=== PATIENT | female | born 1990 | race Caucasian/White ===

== ENCOUNTER 2016-11-11 20:34 | Emergency (ER) | payer OTHER ==
[2016-11-11 20:38] VITALS: BP 110/60; PULSE 77; TEMP 98.3; BMI 29.2
[2016-11-11] MEDS ORDERED: METOCLOPRAMIDE HCL 10 MG TABLET (FP) PO ONE ×2 (20:51→20:58)
--- NOTE | 2016-11-11 20:51 | PDOC ---
History of Present Illness - General History Source: Patient Exam Limitations: No Limitations - History of Present Illness Initial Comments: 11/11/16 21:14 The patient is a 22-year-old female who is 6-weeks , , who presents to the ED with abdominal pain accompanied by nausea, vomiting, and spotting. The patient reports vomiting 4x and noting spotting 3x. The patient has not followed up with her [employer] doctor for the because she recently found out she was after taking a test at home. She also reports some discomfort on urination. The patient denies any fever, chills, diarrhea. The patient denies any shortness of breath or chest pain. Pt has no allergies to medication. <Maren Herzog - Last Filed: 11/11/16 21:14> - General History Source: Patient <Antoine Ramos - Last Filed: 11/12/16 00:53> - General Chief Complaint: Pain Stated Complaint: 6 WEEK PREG., VOMITING AND PAIN Time Seen by Provider: 11/11/16 20:47 Past History <Maren Herzog - Last Filed: 11/11/16 21:14> - Psycho/Social/Smoking Cessation Hx Suicidal Ideation: No Smoking History: Never smoked Substance Use Type: None <Antoine Ramos - Last Filed: 11/12/16 00:53> - Past Medical History Allergies/Adverse Reactions: Allergies Allergy/AdvReac Type Severity Reaction Status Date / Time No Known Allergies Allergy Verified 11/11/16 20:36 Home Medications: Ambulatory Orders Cephalexin Monohydrate [Keflex -] 500 mg PO BID #14 capsule 04/29/15 Diphenhydramine HCl [Benadryl Capsules -] 25 mg PO TID #20 capsule 04/29/15 Hydrocortisone 0.5% Cream [Hytone 0.5% Cream -] 1 applic TP QID #1 tube Loratadine [Claritin] 10 mg PO DAILY #30 tablet 04/29/15 Metoclopramide HCl [Reglan -] 10 mg PO TID #30 tablet 11/12/16 Review of Systems - Review of Systems Comments:: 11/11/16 21:15 CONSTITUTIONAL: Absent: fever, no chills, no fatigue EYES: Absent: visual changes ENT: Absent: ear pain, no sore throat CARDIOVASCULAR: Absent: chest pain, no palpitations RESPIRATORY: Absent: cough, no SOB GI: Present: abdominal pain, nausea, vomiting Absent: no constipation, no diarrhea GENITOURINARY: Present: vaginal spotting, discomfort with urination Absent: no frequency, no hematuria MUSKULOSKELETAL: Absent: back pain, no arthralgia, no myalgia SKIN: Absent: rash NEURO: Absent: headache <Maren Herzog - Last Filed: 11/11/16 21:14> *Physical Exam - Vital Signs Last Vital Signs Temp Pulse Resp BP Pulse Ox 98.3 F 77 18 110/60 100 11/11/16 20:36 11/11/16 20:36 11/11/16 20:36 11/11/16 20:36 11/11/16 20:36 - Physical Exam Comments: 11/11/16 21:19 GENERAL: Well-appearing, well-nourished. No apparent distress. HEENT: Normocephalic, atraumatic. PERRL, EOM intact. CARDIOVASCULAR: Normal S1, S2. Regular rate and rhythm. PULMONARY: Clear to auscultation bilaterally. ABDOMEN: Soft, non-distended, non-tender. EXTREMITIES: Normal ROM in all four extremities. No gross deformities. SKIN: Warm, dry. No rash NEUROLOGICAL: No focal neurological deficits. <Maren Herzog - Last Filed: 11/11/16 21:14> - Vital Signs Last Vital Signs Temp Pulse Resp BP Pulse Ox 98.3 F 77 18 110/60 100 11/11/16 20:36 11/11/16 20:36 11/11/16 20:36 11/11/16 20:36 11/11/16 20:36 <Antoine Ramos - Last Filed: 11/12/16 00:53> ED Treatment Course - Medications Given in the ED: ED Medications Discontinued Medications Generic Name Dose Route Start Last Admin Trade Name Freq PRN Reason Stop Dose Admin Metoclopramide HCl 10 mg 11/11/16 20:51 11/11/16 21:03 Reglan - PO 11/11/16 20:52 10 mg ONCE ONE Administration <Maren Herzog - Last Filed: 11/11/16 21:14> - LABORATORY CBC & Chemistry Diagram: 11/11/16 22:23 11/11/16 22:23 <Antoine Ramos - Last Filed: 11/12/16 00:53> Medical Decision Making - Medical Decision Making 11/12/16 00:53 prescribedDrJericho Ramos: The scribe's documentation has been prepared under my direction and personally reviewed by me in its entirery. I confirm that the note above accurately reflects all work, treatment, procedures, and medical decision making performed by me. <Antoine Ramos - Last Filed: 11/12/16 00:53> *DC/Admit/Observation/Transfer - Attestations Scribe Attestion: 11/11/16 21:20 Documentation prepared by Maren Herzog, acting as medical driver for Antoine Ramos MD. <Maren Herzog - Last Filed: 11/11/16 21:14> - Discharge Dispostion Admit: No <Antoine Ramos - Last Filed: 11/12/16 00:53> Diagnosis at time of Disposition: Intrauterine - Discharge Dispostion Disposition: HOME Condition at time of disposition: Stable - Prescriptions Prescriptions: Metoclopramide HCl [Reglan -] 10 mg PO TID #30 tablet - Patient Instructions Printed Discharge Instructions: DI for -- Discomforts and Remedies Print Language: KYRGYZ
[2016-11-11 22:42] LABS: URINE APPEARANCE CLEAR; URINE BILIRUBIN NEGATIVE (NEGATIVE); URINE BLOOD NEGATIVE (NEGATIVE); URINE COLOR STRAW; URINE GLUCOSE (UA) NEGATIVE (NEGATIVE); URINE KETONE NEGATIVE (NEGATIVE); URINE LEUK ESTERASE NEGATIVE (NEGATIVE); URINE NITRITE NEGATIVE (NEGATIVE); URINE PROTEIN NEGATIVE (NEGATIVE); URINE UROBILINOGEN NEGATIVE mg/dL (0.2-1.0)
[2016-11-11 23:01] LABS: ANION GAP 12 (8-16); CALCIUM 9.2 mg/dL (8.5-10.1); CO2 25 mmol/L (21-32); CREATININE 0.5 mg/dL (0.55-1.02); GLUCOSE,RANDOM 82 mg/dL (74-106); SGOT/AST 18 U/L (15-37); SGPT/ALT 21 U/L (12-78)
[2016-11-11 23:17] LABS: ALK PHOS 76 U/L (45-117); BILIRUBIN,TOTAL 0.4 mg/dL (0.2-1.0); TOT PROT 7.3 g/dl (6.4-8.2)
== END 2016-11-12 01:15 | disposition home or self-care (01) ==
LOC: JER 20:34
DX: O26.891 Other specified pregnancy related conditions, first trimester (principal); O26.851 Spotting complicating pregnancy, first trimester; Z3A.01 Less than 8 weeks gestation of pregnancy
CPT/HCPCS: 36415; 76817-TC; 80053; 81003; 84702; 84703; 86850; 86900; 86901; 87086; 87186; 99282-25

== ENCOUNTER → 2016-11-27 | Emergency (ER) | payer OTHER ==
[~2016-11-27] MED LIST: ACETAMINOPHEN 325 MG TABLET (FP) ONE; ACETAMINOPHEN 325 MG TABLET (FP) PO ONE
[2016-11-27 20:56] VITALS: BMI 29.9
--- NOTE | 2016-11-28 00:01 | PDOC ---
History of Present Illness - General History Source: Patient Exam Limitations: No Limitations - History of Present Illness Initial Comments: The patient is a 26 yo F who presents with epigastric and suprapubic pain, vaginal spotting and pallor. The patient notes having similar symptoms during her last . The patient was seen at [address] [place] [address] yesterday and had blood tests done. The patient states they told her this pain is normal. The patient also endorses associated dizziness and nausea. The patient states that two years ago she had an STI test that was negative. She states shes only been with one sexual partner since. She denies vomiting and diarrhea. PCP: Dr. Morfin <Barbara Bush - Last Filed: 11/28/16 00:36> <Cheyenne Mccloud - Last Filed: 11/28/16 03:41> - General Chief Complaint: Pain Stated Complaint: ABD PAIN 8 WEEK Time Seen by Provider: 11/27/16 23:50 Past History <Barbara Bush - Last Filed: 11/28/16 00:36> - Past Medical History Other medical history: denies - Psycho/Social/Smoking Cessation Hx Suicidal Ideation: No Smoking History: Never smoked Substance Use Type: None <Cheyenne Mccloud - Last Filed: 11/28/16 03:41> - Past Medical History Allergies/Adverse Reactions: Allergies Allergy/AdvReac Type Severity Reaction Status Date / Time No Known Allergies Allergy Verified 11/27/16 20:56 Home Medications: Ambulatory Orders Vit/Iron Fumarate/FA [ Tablet] 1 each PO DAILY 11/28/16 Review of Systems - Review of Systems Able to Perform ROS?: Yes Comments:: GENERAL/CONSTITUTIONAL: +pallor No fever or chills. No weakness. HEAD, EYES, EARS, NOSE AND THROAT: No change in vision. No ear pain or discharge. No sore throat. CARDIOVASCULAR: No chest pain or shortness of breath. RESPIRATORY: No cough, wheezing, or hemoptysis. GASTROINTESTINAL: +epigastric and suprapubic pain No nausea, vomiting, diarrhea or constipation. GENITOURINARY: + vaginal spotting No dysuria, frequency, or change in urination. MUSCULOSKELETAL: No joint or muscle swelling or pain. No neck or back pain. SKIN: No rash NEUROLOGIC: No headache, vertigo, loss of consciousness, or change in strength/ sensation. ALLERGIC/IMMUNOLOGIC: No hives or skin allergy. <Barbara Bush - Last Filed: 11/28/16 00:36> *Physical Exam - Vital Signs Last Vital Signs Temp Pulse Resp BP Pulse Ox 98 F 90 18 124/69 99 11/27/16 20:52 11/27/16 20:52 11/27/16 20:52 11/27/16 20:52 11/27/16 20:52 <Barbara Bush - Last Filed: 11/28/16 00:36> - Vital Signs Last Vital Signs Temp Pulse Resp BP Pulse Ox 98 F 90 18 124/69 99 11/27/16 20:52 11/27/16 20:52 11/27/16 20:52 11/27/16 20:52 11/27/16 20:52 - Physical Exam Comments: GENERAL: Awake, alert, and fully oriented, in no acute distress HEAD: No signs of trauma EYES: PERRLA, EOMI, sclera anicteric, conjunctiva clear ENT: Auricles normal inspection, hearing grossly normal, nares patent, oropharynx clear without exudates. Moist mucosa NECK: Normal ROM, supple, no lymphadenopathy, JVD, or masses LUNGS: Breath sounds equal, clear to auscultation bilaterally. No wheezes, and no crackles HEART: Regular rate and rhythm, normal S1 and S2, no murmurs, rubs or gallops ABDOMEN: Soft, nontender, normoactive bowel sounds. No guarding, no rebound. No masses EXTREMITIES: Normal range of motion, no edema. No clubbing or cyanosis. No cords, erythema, or tenderness NEUROLOGICAL: Cranial nerves II through XII grossly intact. Normal speech, normal gait SKIN: Warm, Dry, normal turgor, no rashes or lesions noted. <Cheyenne Mccloud - Last Filed: 11/28/16 03:41> ED Treatment Course - LABORATORY CBC & Chemistry Diagram: 11/28/16 01:29 11/28/16 01:29 <Cheyenne Mccloud - Last Filed: 11/28/16 03:41> Medical Decision Making - Medical Decision Making 11/28/16 02:[address] Bull at shift change. USS reviewed, +viable IUP with normal FHR. Awaiting remainder of labwork and UA. Likely DC home. No signs of acute abdomen. <Cheyenne Mccloud - Last Filed: 11/28/16 03:41> *DC/Admit/Observation/Transfer - Attestations Scribe Attestion: Documentation prepared by Barbara Bush, acting as medical front desk coordinator for Cheyenne Mccloud MD, /DO. <Barbara Bush - Last Filed: 11/28/16 00:36> <Cheyenne Mccloud - Last Filed: 11/28/16 03:41> Diagnosis at time of Disposition: Intrauterine - Referrals Referrals: Marsha Morfin MD [Primary Care Provider] -
[2016-11-28 01:43] LABS: BASOPHIL 0.4 % (0-2.0); EOSINOPHIL 1.2 % (0-4.5); MCH 28.8 pg (25.7-33.7); MCHC 33.5 g/dl (32.0-36.0); MEAN PLT VOLUME 8.8 fl (7.5-11.1); NEUTROPHILS 66.6 % (42.8-82.8); PLATELET COUNT 286 K/MM3 (134-434); WHITE BLOOD COUNT 9.2 K/mm3 (4.0-10.0)
[2016-11-28 03:04] LABS: URINE APPEARANCE CLEAR; URINE BILIRUBIN NEGATIVE (NEGATIVE); URINE BLOOD NEGATIVE (NEGATIVE); URINE COLOR STRAW; URINE GLUCOSE (UA) NEGATIVE (NEGATIVE); URINE KETONE NEGATIVE (NEGATIVE); URINE LEUK ESTERASE NEGATIVE (NEGATIVE); URINE NITRITE NEGATIVE (NEGATIVE); URINE PROTEIN NEGATIVE (NEGATIVE); URINE UROBILINOGEN NEGATIVE mg/dL (0.2-1.0)
[2016-11-28 05:57] LABS: ALBUMIN 3.5 g/dl (3.4-5.0); ANION GAP 7 (8-16); BILIRUBIN,TOTAL 0.5 mg/dL (0.2-1.0); CALCIUM 8.5 mg/dL (8.5-10.1); CO2 25 mmol/L (21-32); CREATININE 0.5 mg/dL (0.55-1.02); GLUCOSE,RANDOM 89 mg/dL (74-106); SGPT/ALT 18 U/L (12-78); TOT PROT 7.1 g/dl (6.4-8.2)
--- NOTE | 2016-11-28 06:01 | PDOC ---
*Physical Exam - Vital Signs Last Vital Signs Temp Pulse Resp BP Pulse Ox 98 F 90 18 124/69 99 11/27/16 20:52 11/27/16 20:52 11/27/16 20:52 11/27/16 20:52 11/27/16 20:52 ED Treatment Course - LABORATORY CBC & Chemistry Diagram: 11/28/16 01:29 11/28/16 05:19 - ADDITIONAL ORDERS Additional order review: Laboratory Results 11/28/16 11/28/16 11/28/16 05:24 05:19 02:56 Sodium Potassium Chloride Carbon Dioxide Anion Gap BUN Creatinine Creat Clearance w eGFR Random Glucose Calcium Total Bilirubin AST ALT Alkaline Phosphatase Total Protein Albumin Beta HCG, Quant Cancelled Serum , Qual Positive Urine Color Straw Urine Appearance Clear Urine pH 6.0 D Urine Protein Negative Urine Glucose (UA) Negative Urine Ketones Negative Urine Blood Negative Urine Nitrite Negative Urine Bilirubin Negative Urine Urobilinogen Negative Ur Leukocyte Esterase Negative Anti-A Titer Blood Type Antibody Screen Spec Expiration Date 11/28/16 11/28/16 01:29 01:29 Sodium Cancelled Potassium Cancelled Chloride Cancelled Carbon Dioxide Cancelled Anion Gap Cancelled BUN Cancelled Creatinine Cancelled Creat Clearance w eGFR Cancelled Random Glucose Cancelled Calcium Cancelled Total Bilirubin Cancelled AST Cancelled ALT Cancelled Alkaline Phosphatase Cancelled Total Protein Cancelled Albumin Cancelled Beta HCG, Quant Cancelled Serum , Qual Urine Color Urine Appearance Urine pH Urine Protein Urine Glucose (UA) Urine Ketones Urine Blood Urine Nitrite Urine Bilirubin Urine Urobilinogen Ur Leukocyte Esterase Anti-A Titer Cancelled Blood Type Cancelled Antibody Screen Cancelled Spec Expiration Date Cancelled 11/28/16 01:29 RBC 4.25 MCV 86.0 MCHC 33.5 RDW 14.0 MPV 8.8 Neutrophils % 66.6 Lymphocytes % 25.8 Monocytes % 6.0 Eosinophils % 1.2 Basophils % 0.4 - Medications Given in the ED: ED Medications Discontinued Medications Generic Name Dose Route Start Last Admin Trade Name Freq PRN Reason Stop Dose Admin Acetaminophen 650 mg 11/28/16 00:19 11/28/16 01:28 Tylenol - PO 11/28/16 00:20 650 mg ONCE ONE Administration Medical Decision Making - Medical Decision Making 11/28/16 06:01 UA NORMAL; CBC NORMAL; CHEMISTRY WAS HEMOLYZED AND WE ARE STILL AWAITING RESULTS FOR THE REPEAT BLOOD DRAW. 11/28/16 06:54 LABS NORMAL, PATIENT WILL BE DISCHARGED. *DC/Admit/Observation/Transfer Diagnosis at time of Disposition: Intrauterine , Abdominal pain - Discharge Dispostion Disposition: HOME Condition at time of disposition: Stable Admit: No - Referrals Referrals: Marsha Morfin MD [Primary Care Provider] - - Patient Instructions Printed Discharge Instructions: DI for Abdominal Pain-Adult Print Language: MAURITIAN - Post Discharge Activity
[2016-11-28 06:09] LABS: SGOT/AST 26 U/L (15-37)
[2016-11-28 06:10] LABS: ALK PHOS 60 U/L (45-117)
[2016-11-28 06:49] VITALS: BP 118/70; PULSE 68; TEMP 98
== END | disposition home or self-care (01) ==
LOC: JER 20:47
DX: O26.891 Other specified pregnancy related conditions, first trimester (principal); R10.2 Pelvic and perineal pain; Z3A.08 8 weeks gestation of pregnancy
CPT/HCPCS: 36415; 76801-TC; 80053; 81003; 84702; 84703; 85025; 99283-25